=== PATIENT | male | born 1965 | race Caucasian/White ===

== ENCOUNTER → 2016-04-26 | Outpatient (CLI) | payer BC ==
[~2016-04-26] MED LIST: FLX10 PO; IBUP600T44 PO
--- NOTE | 2016-04-26 10:18 | DIAGNOSTIC IMAGING REPORT ---
LEFT ELBOW MIN 3 VIEWS CLINICAL HISTORY: Left elbow pain. No recent injury. COMPARISON: None FINDINGS: Alignment of left elbow is anatomic. There is no joint effusion. No fracture or suspicious lesion is present. There is slight irregularity of the medial and lateral condyles which is chronic. There is no evidence for an osteochondral abnormality. Joint spaces are preserved. IMPRESSION: 1. No acute fracture or joint effusion of the left elbow. 2. No significant osseous abnormality of the left elbow. Electronically signed by: Mike River M.D. 04/26/2016 10:17 AM Dictated Date/Time: 04/26/2016 10:15 AM
== END | disposition home or self-care (01) ==
LOC: C.RDSM 08:00
PROVIDERS: ATTEND Internal Medicine
DX: M25.522 Pain in left elbow (principal)

== ENCOUNTER → 2017-02-10 | Outpatient (CLI) | payer BC ==
[2017-02-10 13:47] LABS: BLOOD UREA NITROGEN 13 mg/dl (7-18); BUN/CREATININE RATIO 11.2 (10-20); CALCIUM 8.7 mg/dl (8.5-10.1); CARBON DIOXIDE 29 mmol/L (21-32); CHLORIDE 105 mmol/L (98-107); CREATININE 1.18 mg/dl (0.60-1.40); GLUCOSE 95 mg/dl (70-99); POTASSIUM 3.6 mmol/L (3.5-5.1); SODIUM 142 mmol/L (136-145)
[2017-02-10 14:23] LABS: CHOLESTEROL/HDL RATIO 5.3
== END | disposition home or self-care (01) ==
LOC: C.LABPVFM 10:06
PROVIDERS: ATTEND Nurse Practitioner
DX: N28.9 Disorder of kidney and ureter, unspecified (principal); Z13.220 Encounter for screening for lipoid disorders

== ENCOUNTER → 2017-06-12 | Outpatient (CLI) | payer BC ==
--- NOTE | 2017-06-12 14:49 | DIAGNOSTIC IMAGING REPORT ---
CHEST 2 VIEWS ROUTINE HISTORY: Short of breath. Mid CHEST WALL PAIN COMPARISON: Chest 06/06/2008. FINDINGS: The lungs are clear. Cardiac silhouette is normal in size. No pleural effusions. No pneumothorax. IMPRESSION: No acute process. Electronically signed by: Popeye Clayton M.D. 06/12/2017 2:48 PM Dictated Date/Time: 06/12/2017 2:42 PM
== END | disposition home or self-care (01) ==
LOC: C.RADPV 14:20
PROVIDERS: ATTEND Family Medicine
DX: R07.89 Other chest pain (principal)